=== PATIENT | male | born 1930 | race Caucasian/White ===

== ENCOUNTER 2016-12-24 16:12 | Emergency (ER) | payer OTHER ==
[~2016-12-24] VITALS: Ht 182.9 cm; Wt 90.7 kg
--- NOTE | 2016-12-24 16:15 | NUR ---
BBRA 76 FROM HOME FOR MORE ALTERED THAN USUAL, FOUND BY A HOUSE KEEPER. PLACED ON MONITOR. AWAITING MD ORDER
--- NOTE | 2016-12-24 16:20 | NUR ---
DR WATERS AT BEDSIDE FOR EVAL
--- NOTE | 2016-12-24 16:32 | NUR ---
EKG IN PROGRESS.
[2016-12-24 16:43] LABS: EOSINOPHILS % (AUTO) 0.2 % (0.0-6.0); HEMATOCRIT 56 % (39-51); MEAN CORPUSCULAR HEMOGLOBIN 33 PG (26.0-33.0); MONOCYTES # (AUTO) 0.9 /CMM (0.1-1.30); RDW COEFFICIENT OF VARIATION 12.9 (11.5-15.0)
[2016-12-24 16:45] LABS: BASOPHILS # (AUTO) 0.3 /CMM (0.0-0.2); BASOPHILS % (AUTO) 2.4 % (0.0-2.0); LYMPHOCYTES % (AUTO) 8.6 % (20.0-44.0); MEAN CORPUSCULAR HGB CONC 34 g/dl (31.0-36.0); MEAN CORPUSCULAR VOLUME 98 fL (80-96); MONOCYTES % (AUTO) 7.2 % (2.0-12.0); NEUTROPHILS # (AUTO) 9.6 /CMM (1.8-8.9); NEUTROPHILS % (AUTO) 81.6 % (43.0-81.0); PLATELET COUNT (AUTO) 216 /CMM (150-450); RED BLOOD CELL COUNT(AUTO) 5.73 MIL/uL (4.5-6.0); WHITE BLOOD COUNT (AUTO) 11.8 K/uL (4.3-11.0)
[2016-12-24 17:00] LABS: INR 1.12 (0.87-1.13); PROTHROMBIN TIME 11.7 SECS (9.5-12.7)
[2016-12-24 17:09] LABS: CALCIUM, SERUM 9.1 mg/dL (8.5-10.1); CARBON DIOXIDE 25 mmol/L (21-32); CHLORIDE 106 mmol/L (98-107); CREATININE 1.1 mg/dL (0.6-1.3); GLUCOSE 137 mg/dL (74-106); POTASSIUM 4.1 mmol/L (3.5-5.1); SODIUM SERUM 143 mmol/L (136-145); UREA NITROGEN, BLOOD 16 mg/dL (7-18)
[2016-12-24 17:23] LABS: BAND % (MANUAL) 4 % (0.0-5.0); BASOPHILS % (MANUAL) 0 % (0.0-2.0); EOSINOPHILS % (MANUAL) 0 % (0-4); LYMPHOCYTES % (MANUAL) 13 % (16-48); MONOCYTES % (MANUAL) 4 % (0-11.0); NEUTROPHILS % (MANUAL) 79 (42-76)
[2016-12-24 17:28] LABS: TROPONIN I 0.071 ng/mL (0.00-0.056)
--- NOTE | 2016-12-24 17:40 | NUR ---
URINE SAMPLE COLLECTED SENT TO LAB
--- NOTE | 2016-12-24 17:43 | NUR ---
SHAHRAM [phone] CAREGIVER
[2016-12-24 17:58] LABS: ALANINE AMINOTRANSFERASE 52 U/L (12-78); ALBUMIN 3.7 g/dL (3.4-5.0); ALKALINE PHOSPHATASE 103 U/L (46-116); ASPARTATE AMINOTRANSFERASE 58 U/L (15-37); BILIRUBIN,DIRECT 0.4 mg/dL (0.0-0.2); BILIRUBIN,TOTAL 1.3 mg/dL (0.2-1.0); TOTAL PROTEIN, SERUM 7.8 g/dL (6.4-8.2)
[2016-12-24 17:59] LABS: ACETAMINOPHEN < 2 ug/ml (10-30); SALICYLATE < 2.8 mg/dL (2.8-20.0)
[2016-12-24 18:06] LABS: ALCOHOL, BLOOD < 3 mg/dL (0-0); SERUM AMMONIA 24 umol/L (11-32)
[2016-12-24 18:09] LABS: APPEARANCE,URINE Clear (CLEAR); BILIRUBIN,URINE MODERATE (NEGATIVE); BLOOD, URINE Negative Ery/uL (NEGATIVE); COLOR,URINE Yellow (YELLOW); KETONES,URINE 15 (NEGATIVE); LEUKOCYTE ESTERASE ,URINE Negative (NEGATIVE); NITRITE, URINE Negative (NEGATIVE); PH,URINE 5.5 (5.0-8.0); PROTEIN,URINE 100 mg/dl (NEGATIVE); UGLUCOSE Negative (NEGATIVE)
[2016-12-24 18:31] LABS: BACTERIA,URINE Few /HPF (None Seen); RBC,URINE 0-2 /HPF (0-2); SQUAMOUS EPITHELIAL CELL,UR Few /HPF (None Seen); WBC,URINE 0-2 /HPF (0-3)
[2016-12-24 18:32] LABS: HYALINE CASTS, URINE Rare /LPF (None Seen)
[2016-12-24] MEDS ORDERED: ASPIRIN 81 MG TAB.CHEW PO ONE (19:00)
[2016-12-24] MEDS ORDERED: IV NS 0.9% 500 ML BAG IV ONE ×2 (19:00→21:00)
--- NOTE | 2016-12-24 19:12 | NUR ---
[facility] WAIT[facility] FOR A CALL BACK FROM [facility].
--- NOTE | 2016-12-24 19:17 | NUR ---
DR WATERS ON THE PHONE WITH [place] DO[facility].
--- NOTE | 2016-12-24 19:34 | NUR ---
ALEJANDRO CALLED FROM [facility] PATIENT WILL BE TRASPORTED TO [facility] ER ACCEPTING DR WHITEHEAD [phone] ALS ETA 1HR.
[2016-12-24] MEDS ORDERED: ASPIRIN 81 MG TAB.CHEW ONE (19:40)
[2016-12-24 20:50] VITALS: BP 155/76
--- NOTE | 2016-12-24 20:58 | NUR ---
GAVE REPORT TO [facility]O [facility] AT [facility] . PT TRANSFER VIA AMBUALNCE STABLE CONDITION
--- NOTE | 2016-12-24 21:04 | NUR ---
IV 500 NS NOT GIVEN PT DISCHARGE DR WATERS MADE AWARE
[2016-12-24 22:58] LABS: CREATINE KINASE MB 11.1 ng/mL (0-3.6)
[2016-12-25 10:51] LABS: THYROID STIMULATING HORMONE 1.935 uIU/mL (0.358-3.74)
== END 2016-12-24 20:57 | disposition short-term general hospital (02) ==
LOC: ER 16:16
DX: E86.0 Dehydration (principal); R55 Syncope and collapse; R79.89 Other specified abnormal findings of blood chemistry; I10 Essential (primary) hypertension; M48.02 Spinal stenosis, cervical region
CPT/HCPCS: 36415; 70450-TC; 71010-TC; 72125-TC; 80048-TC; 80076-TC; 80305; 81000-TC; 82140-TC; 82550-TC; 82553-TC; 82962-TC; 83605-TC; 84443-TC; 84484-TC; 85025-TC; 85730-TC; 87040-TC; 87086-TC; A4606; G0480; J7040; Z7610